=== PATIENT | male | born 1955 | race Caucasian/White ===

== ENCOUNTER 2021-07-11 21:41 | Observation (INO) ==
[2021-07-11 23:07] LABS: Basophils % 0.3 %; Eosinophils % 0.1 %; Hematocrit 46.7 % (37.5-50.1); Hemoglobin 15.3 g/dL (12.9-16.9); Immature Granulocytes % 0.4 % (0-4); Lymphocytes # 0.7 K/mcL (0.6-4.6); Lymphocytes % 4.8 %; Mean Corpuscular HGB Conc 32.8 g/dL (31.6-35.5); Mean Corpuscular Hemoglobin 27.2 pg (28.0-33.3); Mean Corpuscular Volume 82.9 fL (83.0-100.0); Mean Platelet Volume 8.8 fL (9.4-12.4); Monocytes # 0.8 K/mcL (0.0-1.3); Monocytes % 5.2 %; Neutrophils # 12.8 K/mcL (1.6-8.9); Platelet Count 374 K/mcL (140-400); Red Blood Count 5.63 M/mcL (4.19-5.50); Red Cell Distribution Width 13.2 % (11.5-14.5); Segmented Neutrophils % 89.2 %; White Blood Count 14.4 K/mcL (4.3-11.1)
[2021-07-11 23:16] LABS: INR 1.2; Prothrombin Time 13.8 Seconds (9.4-12.1)
[2021-07-11 23:19] LABS: Activated Partial Thrombo Time 33.9 Seconds (26.0-36.0)
[2021-07-11 23:27] LABS: Alanine Aminotransferase 11 Units/L (7-52); Albumin 4.2 g/dL (3.5-5.7); Albumin/Globulin Ratio 1.2 (1.1-2.2); Alkaline Phosphatase 81 Units/L (34-104); Aspartate Amino Transferase 17 Units/L (13-39); BUN/Creatinine Ratio 20 (6-26); Bilirubin,Total 0.5 mg/dL (0.3-1.0); Blood Urea Nitrogen 17 mg/dL (8-23); Calcium 9.1 mg/dL (8.6-10.3); Carbon Dioxide 27 mEq/L (23-29); Chloride 95 mEq/L (98-107); Globulin 3.6 g/dL (2.4-3.5); Glucose 113 mg/dL (70-105); Magnesium 1.8 mg/dL (1.6-2.6); Osmolality,Calculated 274 (280-300); Sodium 131 mEq/L (136-145); Total Protein 7.8 g/dL (6.4-8.9); eGFR For African Americans > 60 (> 60); eGFR For Non-African Americans > 60 (> 60)
[2021-07-11] MEDS ORDERED: levoFLOXacin 750 MG/150 ML 750 MG/150 ML BAG IVPB STA (23:52)
[2021-07-11] MEDS ORDERED: Isovue-370 500 ML BOTTLE IVP ONE (23:52)
[2021-07-12] MEDS ORDERED: Ipratropium/Albuterol Neb 3 ML IH ONE ×2 (00:01→03:53)
[2021-07-12] MEDS: Ipratropium/Albuterol Neb 3 ML IH ONE (00:44)
[2021-07-12] MEDS ORDERED: Acetaminophen 325 MG TABLET PO PRN ×2 (03:10→03:53)
[2021-07-12] MEDS ORDERED: Naloxone 0.4 MG/ML INJ IVP PRN ×3 (03:10→03:53)
[2021-07-12] MEDS ORDERED: Melatonin 3 MG TABLET PO PRN ×2 (03:10→03:53)
[2021-07-12] MEDS ORDERED: 0.9 % Sodium Chloride 1,000 ML IVC SCH (03:53)
[2021-07-12] MEDS: Ipratropium/Albuterol Neb 3 ML IH SCH ×3 (04:41→12:10)
[2021-07-12 04:46] LABS: INR 1.3; Prothrombin Time 14.1 Seconds (9.4-12.1)
[2021-07-12 05:21] LABS: Blood Urea Nitrogen 16 mg/dL (8-23); Chloride 95 mEq/L (98-107); Potassium 3.9 mEq/L (3.5-5.1); Sodium 132 mEq/L (136-145)
[2021-07-12 05:22] LABS: Alanine Aminotransferase 10 Units/L (7-52); Alkaline Phosphatase 77 Units/L (34-104); Aspartate Amino Transferase 15 Units/L (13-39); Bilirubin,Total 0.5 mg/dL (0.3-1.0); Calcium 9.3 mg/dL (8.6-10.3); Glucose 139 mg/dL (70-105); Osmolality,Calculated 277 (280-300); Phosphorous 3.1 mg/dL (2.7-4.5)
[2021-07-12 06:26] LABS: Albumin/Globulin Ratio 1.1 (1.1-2.2); BUN/Creatinine Ratio 19 (6-26); Carbon Dioxide 26 mEq/L (23-29); Globulin 3.7 g/dL (2.4-3.5); Magnesium 1.8 mg/dL (1.6-2.6); Total Protein 7.7 g/dL (6.4-8.9); eGFR For African Americans > 60 (> 60); eGFR For Non-African Americans > 60 (> 60)
[2021-07-12 07:48] VITALS: TEMP 97.4
[2021-07-12 08:14] LABS: Basophils % 0.1 %; Hematocrit 40.4 % (37.5-50.1); Hemoglobin 13.4 g/dL (12.9-16.9); Immature Granulocytes % 0.4 % (0-4); Lymphocytes # 0.4 K/mcL (0.6-4.6); Lymphocytes % 3.6 %; Mean Corpuscular HGB Conc 33.2 g/dL (31.6-35.5); Mean Corpuscular Hemoglobin 27.1 pg (28.0-33.3); Mean Corpuscular Volume 81.6 fL (83.0-100.0); Mean Platelet Volume 9.3 fL (9.4-12.4); Monocytes # 0.1 K/mcL (0.0-1.3); Monocytes % 0.4 %; Neutrophils # 10.8 K/mcL (1.6-8.9); Platelet Count 309 K/mcL (140-400); Red Blood Count 4.95 M/mcL (4.19-5.50); Red Cell Distribution Width 13.1 % (11.5-14.5); Segmented Neutrophils % 95.5 %; White Blood Count 11.3 K/mcL (4.3-11.1)
[2021-07-12] MEDS ORDERED: predniSONE 20 MG TABLET PO SCH (09:00)
[2021-07-12] MEDS ORDERED: Chlorhexidine Rinse 15 ML MOUTHWASH MM SCH (09:00)
[2021-07-12] MEDS ORDERED: lisinopriL 10 MG TABLET PO SCH (09:00)
[2021-07-12] MEDS ORDERED: Lactobacillus 1 EACH CAP.SPRINK PO SCH (09:00)
[2021-07-12] MEDS ORDERED: Budesonide/Formoterol 160/4.5 1 PUFF INH IH SCH (10:00)
[2021-07-12] MEDS ORDERED: Tiotropium 10 INH DOSE IH SCH (10:00)
[2021-07-12 11:13] VITALS: BP 102/58; PULSE 76; RESP 17
[2021-07-12 12:10] VITALS: O2SAT 94
[2021-07-12 13:04] LABS: Adenovirus Not Detected (Not Detect); Bordetella Pertussis Not Detected (Not Detect); Chlamydophila pneumoniae Not Detected (Not Detect); Coronavirus 229E Not Detected (Not Detect); Coronavirus HKU1 Not Detected (Not Detect); Coronavirus NL63 Not Detected (Not Detect); Coronavirus OC43 Not Detected (Not Detect); Human Metapneumovirus Not Detected (Not Detect); Human Rhinovirus/Enterovirus DETECTED (Not Detect); Influenza A Subtype 2009 H1 Not Detected (Not Detect); Influenza B Not Detected (Not Detect); Mycoplasma pneumoniae Not Detected (Not Detect); Parainfluenza Virus 1 Not Detected (Not Detect); Parainfluenza Virus 2 Not Detected (Not Detect); Parainfluenza Virus 3 Not Detected (Not Detect); Parainfluenza Virus 4 Not Detected (Not Detect); Respiratory Syncytial Virus Not Detected (Not Detect); SARS-CoV-2 Not Detected (Not Detect)
[2021-07-13] MEDS ORDERED: *HR* Enoxaparin 40 MG/0.4 ML SYRINGE SQ SCH (06:00)
[2021-07-13] MEDS ORDERED: levoFLOXacin 750 MG TABLET PO SCH (09:00)
== END 2021-07-12 12:52 | disposition home or self-care (01) ==
LOC: INPPIK 21:41 → EMEROOPIK 21:41 → INPPIK 07-12 02:38
PROVIDERS: ADMIT Internal Medicine; ATTEND Internal Medicine